=== PATIENT | male | born 1980 | race African-American/Black ===

== ENCOUNTER 2020-04-21 14:22 | Outpatient (CLI) | payer OTHER, SELFPAY ==
--- NOTE | 2020-04-27 10:49 | WPDPFTINT ---
PFT Interpretation PFT Interpretation: This PFT met all criteria for ATS standards and reproducibility FEV/FVC post bronchodilator 80% FEV1 103% FVC 97% TLC 88% RV 62% RV/TLC 20% DLCO 99% when adjusted for alveolar volume but not adjusted for hemoglobin Flow volume loops were normal Impression: This is a normal PFT. Clinical correlation is advised.
== END 2020-04-21 14:23 | disposition home or self-care (01) ==
LOC: ANHPFT 14:25
PROVIDERS: PCP Internal Medicine Critical Care Medicine; Visit Provider Internal Medicine Critical Care Medicine
DX: R07.89 Other chest pain (principal)
CPT/HCPCS: 94060; 94726; 94729

== ENCOUNTER 2020-07-12 12:41 | Outpatient (CLI) | payer OTHER, SELFPAY ==
--- NOTE | 2020-07-14 07:39 | WPDPFTINT ---
PFT Interpretation This is a methacholine challenge test. The test was performed and interpreted in accordance with the [employer] guidelines. The test was performed with increasing doses of nebulized methacholine using a 2 minute tidal breathing protocol. The best post-methacholine FEV1 values were used to calculate the change from the post diluent FEV1. Findings: Baseline FEV1 4.23 L, 98% predicted. Post diluent FEV1 3.99 L. Post 0.025 mg/ml methacholine FEV1 4.07 L, increased 2% Post 0.25 mg/mL methacholine FEV1 3.91 L, decreased 2% Post 2.5 mg/mL methacholine FEV1 3.93 L, decreased 2% Post 10 mg/mL methacholine FEV1 3.79 L, decreased 5% Post 25 mg/mL methacholine FEV1 3.69 L, decreased 8% Post albuterol nebulization FEV1 3.92 L Impression: The PC20 is greater than 25 mg/ml indicating normal bronchial responsiveness. There are no prior studies for comparison
== END 2020-07-12 12:42 | disposition home or self-care (01) ==
LOC: ANHPFT 12:42
PROVIDERS: PCP Internal Medicine Critical Care Medicine; Visit Provider Internal Medicine Critical Care Medicine
DX: R07.89 Other chest pain (principal)
CPT/HCPCS: 94070; J7674